=== PATIENT | male | born 1995 | race Caucasian/White ===

== ENCOUNTER 2020-07-28 20:02 | Emergency (ER) | payer BC, SELFPAY ==
[2020-07-28] VITALS (12 sets, daily range): BP systolic 112–157; BP diastolic 77–110; PULSE 90–140; RESP 14–23; TEMP 37.1; O2SAT 94–99
--- NOTE | 2020-07-28 20:00 | RT.EKG_ITS ---
APPROVED REPORT Exam: Resting ECG Patient Location: E HR:128 bpm ECG Measurements Heart Rate 128 AXIS DE 151 P 76 QRSd 96 QRS 86 QT 299 T -34 QTc 435 Conclusion Sinus tachycardia...rate> 99
--- NOTE | 2020-07-28 20:15 | DI.CT_ITS ---
EXAM: CT THORAX CTA CLINICAL HISTORY: chest pain. TECHNIQUE: Imaging Protocol: Axial CT angiography was performed with multi-slice acquisition and mu lti-planar and/or 3D reconstructions. CONTRAST MATERIAL: Intravenous: Omnipaque 350 Contrast volume:64 mL COMPARISON: No exams were available for comparison FINDINGS: Pulmonary Arteries: No evidence of filling defect to suggest pulmonary emboli. Tracheobronchial tree: Patent where visualized. Mediastinum and Natalya: No dominant adenopathy or fluid collection. Pulmonary parenchyma: No consolidation or dominant measurable mass. No architectural distortion. Pleura: No effusion or pneumothorax. Heart: The heart is not dilated. No coronary artery calcifications are seen. No pericardial effusion. Aorta: Thoracic aorta non-dilated. No dissection. Upper abdomen: Unremarkable. Bones: Normal. Soft tissues: Unremarkable IMPRESSION: No evidence of pulmonary embolism, thoracic aortic dissection or aneurysm. RADIATION DOSE DELIVERED: 391.12mGy.cm Total DLP DATA REPOSITORY: All CT scans at this facility are submitted to the National Radiology Data Registry (NRDR) Dose Index Registry (DIR) with the [employer] (ACR). RADIATION OPTIMIZATION: All CT scans at this facility use at least one of these dose optimization te chniques: automated exposure control; mA and/or kV adjustment per patient size (includes targeted exa ms where dose is matched to clinical indication); or iterative reconstruction.
--- NOTE | 2020-07-28 20:17 | ED.GENADUL_ITS ---
Discharge Plan Disposition Patient Disposition: HOME Condition: Stable Discharge Details Clinical Impression: Chest pain, Hypokalemia ED Provider: Rolando Hawk Home Meds and New Rx's Prescriptions: Continued calcium carbonate 500 mg calcium (1,250 mg) Tablet,Chewable 1 mg PO PRN PRNRF: 0 albuterol 90 mcg/actuation Aerosol INHALATION PRN PRNRF: 0 Discharge Instructions Instructions: Chest Pain (ED), Hypokalemia (ED) Additional Instructions: follow up with your primary care provider within 1 week and also have your potassium level rechecked if you feel more ill, have worsening pain or difficulty breathing return to the emergency department Medical Decision Making 24 yo male with no chronic medical problems who denies smoking or drug use and drinks occassionally comes in after he was eating then started to have chest pressure with radiation to the back. No diaphoresis, vomit dyspnea, fevers cough and felt well all day. Denies prior cardiac history. He arrives tachycardic and does appear mildly anxious. No leg swelling or calf tenderness or pleuritic chest pain. Suspect this could be anxiety vs esophageal spasm but given his heart rate and radiation to the back concern for possible dissection will obtain CT. Heart score is 1, will obtain troponin. No evidence of dvt and no pleuritic pain or hypoxia so doubt PE Labs show hypokalemia otherwise unremarkable, and ct imaging shows no acute findings. On reassessment his HR is in the 90's sinus on the monitor and he feels improved. Will monitor and obtain delta troponin and ecg pt remains asymptomatic , hd stable with hr's in the 90's, repeat ecg and troponin reassuring. Will d/c and advised to f/u with pcp within 1 week and return precautions given Differential Diagnosis Differential Diagnosis: dissection, acs, anxiety Lab Data Lab results reviewed: Yes I reviewed the patient's lab results. ECG Data Attestation: I personally reviewed and interpreted this ECG (s) as follows: Prior ECG tracings: not available for review Interpretation: sinus tachycardia, rate of 128, pr 151 2nd ekg shows sinus rhythm rate of [address] t wave ischemic findings HPI General Mode of arrival: ambulatory . Date/Time Provider Initiated Documentation: 07/28/20 20:04 . Limitations to Documentation: no limitations . Information obtained by: patient . History of Present Illness 24 year old M presents to the emergency department with the chief complaint of chest pain, described as moderate, Patient started experiencing this hour(s) (1) and it has been constant. No relieving factors improve symptom(s), No exacerbating factors reported . Patient did receive the following treatments prior to arrival, none Related Data Home Medications Medication Instructions Recorded Confirmed albuterol mcg INHALATION PRN PRN 07/28/20 calcium carbonate 1 mg PO PRN PRN 07/28/20 07/28/20 Allergies Allergy/AdvReac Type Severity Reaction Status Date / Time No Known Allergies Allergy Unverified 07/28/20 20:10 General Stated Complaint: Chest Pain MASON: 2 Review of Systems All systems reviewed & are unremarkable except as noted in HPI and below Constitutional Constitutional: Denies chills, Denies fever(s) and Denies weakness Cardiovascular Cardiovascular: Denies dyspnea Respiratory Respiratory: Denies cough and Denies dyspnea Gastrointestinal Gastrointestinal: Denies abdominal pain, Denies nausea and Denies vomiting Musculoskeletal Musculoskeletal: Denies joint swelling Neurologic Neurologic: Denies weakness Psychiatric Psychiatric: Denies depression PFSH Social History Smoking/Tobacco Use Status: Never Smoking risk assessment performed?: Yes Alcohol Intake: current Alcohol Intake frequency: 0-2 drinks per day Drug use: Never Substance use type: does not use Do you feel safe at home: Yes Do you feel safe in your relationship?: Yes Exam Const General: no acute distress Orientation: alert HENCO Head: normal to inspection Ears: external ears normal General nose exam: external nose normal Mouth: moist mucous membranes Eyes General: appearance normal, both eyes and all related structures Neck Neck: normal visual inspection Resp Effort & Inspection: normal respiratory effort and able to speak in complete sentences Cardio Rate: tachycardic Skin General skin exam: no rashes or lesions noted Neuro General: patient alert and patient oriented x3 Extrem General: normal to inspection Psych Mental Status: mental status grossly normal Course Vital Signs Vital signs: Vital Signs Temperature 37.1 C 07/28/20 20:03 Pulse 140 H 07/28/20 20:03 Respiratory Rate 14 07/28/20 20:03 Blood Pressure 157/108 H 07/28/20 20:03 Pulse Oximetry 94 07/28/20 20:03 Temperature 37.1 C 07/28/20 20:03 Temperature Source Temporal Artery Scan 07/28/20 20:03 Pulse 140 H 07/28/20 20:03 Respiratory Rate 14 07/28/20 20:03 Respiratory Effort 07/28/20 20:08 Blood Pressure 157/108 H 07/28/20 20:03 Blood Pressure Position Sitting 07/28/20 20:03 Pulse Oximetry 94 07/28/20 20:03 Oxygen Delivery Method Room Air 07/28/20 20:03 Oxygen Flow Rate 0 07/28/20 20:03 Pain Level 7 07/28/20 20:12
[2020-07-28] MEDS: Aspirin 81 MG CHEW 324 MG CH (20:24)
[2020-07-28] MEDS: LORazepam 2 MG/ML VIAL 1 MG IVP (20:24)
[2020-07-28 20:26] LABS: Abs Immature Grans 0.01 10^3/uL (0.0-0.06); Absolute Basophil Count 0.06 10^3/uL (0.0-0.2); Absolute Eosinophil Count 0.04 10^3/uL (0.0-0.7); Absolute Lymphocyte Count 2.78 10^3/uL (1.2-3.4); Absolute Monocyte Count 0.79 10^3/uL (0.1-0.8); Absolute Neutrophil Count 5.89 10^3/uL (1.2-6.7); Basophils % 0.6; Eosinophils % 0.4; HCT 43.8 % (40.0-50.0); HGB 15.1 g/dL (13.5-17.5); Immature Grans % 0.1; MCH 30.6 pg (27.0-33.0); MCHC 34.5 % (32.0-36.0); MCV 88.8 fL (80-95); MPV 10.2 fL (8.0-11.0); Monocytes % 8.3; Neutrophils % 61.6; Nucleated RBC 0 %; Platelet Count 372 10^3/uL (130-400); RBC 4.93 10^6/uL (4.36-5.78); RDW 12.2 % (11.8-14.1); RDW-SD 39.8 fL; WBC 9.57 10^3/uL (4.4-10.8)
[2020-07-28] MEDS: Omnipaque 350 MG/ML 100 ML BTL IJ (20:27)
[2020-07-28 20:40] LABS: INR 1.1 (0.9-1.1); PTT Activated 24.2 sec (21.0-27.5); Prothrombin Time 11.2 sec (9.3-11.0)
[2020-07-28 20:42] LABS: ALT 24 U/L (16-63); AST 18 U/L (15-37); Alkaline Phosphatase 84 U/L (46-116); Anion Gap 13.5 mmol/L (3-11); BUN 11 mg/dL (7-18); Bilirubin, Total 1.8 mg/dL (0.2-1.0); CO2 24.5 mmol/L (21.0-32.0); CREATININE 1.13 mg/dL (0.70-1.30); Calcium 9.1 mg/dL (8.5-10.1); Chloride 101 mmol/L (98-107); Glucose 108 mg/dL (74-106); Lipase 90 U/L (73-393); Magnesium 2.1 mg/dL (1.8-2.4); Sodium 139 mmol/L (136-145); Total Protein 8.5 g/dL (6.4-8.2)
[2020-07-28 20:43] LABS: Troponin I < 0.05 ng/mL (<0.06)
[2020-07-28 20:44] LABS: Potassium 2.8 mmol/L (3.5-5.1)
[2020-07-28 20:53] LABS: ETHANOL BLOOD < 3.0 mg/dL (<3)
[2020-07-28] MEDS: Potassium Chloride 20 MEQ TABCR 40 MEQ PO (21:01)
[2020-07-28] MEDS: Normal Saline Flush 10 ML SYR IVP (21:01)
[2020-07-28] MEDS: Normal Saline - Diluent 50 ML VIAL IV (21:01)
--- NOTE | 2020-07-28 21:02 | DI.VRAD_ITS ---
PROCEDURE INFORMATION: Exam: CT Angiography Chest With Contrast Exam date and time: 07/28/2020 8:43 PM Age: 24 years old Clinical indication: Chest pain and chest pressure; Patient HX: Chest pain and pressure radiating into arm TECHNIQUE: Imaging protocol: Computed tomographic angiography of the chest with intravenous contrast. 3D rendering (Not supervised by radiologist): MIP and/or 3D reconstructed images were created by the technologist. Radiation optimization: All CT scans at this facility use at least one of these dose optimization techniques: automated exposure control; mA and/or kV adjustment per patient size (includes targeted exams where dose is matched to clinical indication); or iterative reconstruction. Contrast material: OMNIPAQUE 350; Contrast volume: 64 ml; Contrast route: INTRAVENOUS (IV); COMPARISON: No relevant prior studies available. FINDINGS: Pulmonary arteries: Normal. No pulmonary emboli. Aorta: Unremarkable. No aortic aneurysm. No aortic dissection. Lungs: Unremarkable. No consolidation. No masses. Pleural space: Unremarkable. No pneumothorax. No pleural effusion. Heart: Unremarkable. No cardiomegaly. No pericardial effusion. Lymph nodes: Unremarkable. No enlarged lymph nodes. Bones/joints: Unremarkable. No acute fracture. Soft tissues: Unremarkable. Other findings: The visualized intra-abdominal structures demonstrate no acute findings. IMPRESSION: Negative for acute thoracic pathology. Dictated and Authenticated by: Georges Quinonez MD. Ordering:DAVID Marshall MD
[2020-07-28] MEDS: Normal Saline 1,000 ML 1000 ML IV (22:01)
--- NOTE | 2020-07-28 22:23 | NUR.NOTE ---
pt states that he feels better Nursing Note:
--- NOTE | 2020-07-28 23:00 | RT.EKG_ITS ---
APPROVED REPORT Exam: Resting ECG Patient Location: E HR:91 bpm ECG Measurements Heart Rate 91 AXIS MT 134 P 69 QRSd 96 QRS 77 QT 344 T 47 QTc 423 Conclusion Sinus rhythm...normal P axis, V-rate 60- 99
[2020-07-28 23:48] LABS: Troponin I < 0.05 ng/mL (<0.06)
== END 2020-07-29 00:15 | disposition home or self-care (01) ==
LOC: ER 07-29 00:12
PROVIDERS: Emergency Provider Emergency Medicine; PCP Physician Assistant
DX: E87.6 Hypokalemia (principal); R07.9 Chest pain, unspecified
CPT/HCPCS: 36415; 71275; 80053; 83690; 93005; 96374; 99285; 80320; 83735; 84484; 85025; 85610; 85730; 93010; J2060; J3490

== ENCOUNTER 2020-08-09 21:06 | Outpatient (REF) | payer BC, SELFPAY ==
[2020-08-09 18:39] LABS: Anion Gap 8.4 mmol/L (3-11); BUN 9 mg/dL (7-18); CO2 27.6 mmol/L (21.0-32.0); CREATININE 0.99 mg/dL (0.70-1.30); Calcium 9.3 mg/dL (8.5-10.1); Chloride 104 mmol/L (98-107); Glucose 89 mg/dL (74-106); Sodium 140 mmol/L (136-145)
== END 2020-08-09 21:26 ==
LOC: NCHCN 21:06
PROVIDERS: PCP Physician Assistant; Visit Provider Physician Assistant
DX: E87.6 Hypokalemia (principal)
CPT/HCPCS: 80048

== ENCOUNTER 2021-02-07 02:35 | Outpatient (CLI) | payer BC, SELFPAY ==
[2021-02-07 16:44] LABS: Albumin 4.5 g/dL (3.4-5.0); Anion Gap 10.6 mmol/L (3-11); BUN 11 mg/dL (7-18); CO2 25.4 mmol/L (21.0-32.0); Chloride 105 mmol/L (98-107); Glucose 91 mg/dL (74-106); Sodium 141 mmol/L (136-145); TSH (W/Ref FT4) 1.02 uIU/mL (0.36-3.74); Vitamin B12 301 pg/mL (193-986)
[2021-02-07 16:54] LABS: C-Reactive Protein 0.09 mg/dL (0.0-0.3); PHOSPHORUS 3.9 mg/dL (2.6-4.7)
[2021-02-07 17:00] LABS: Lithium 0.5 mmol/l (0.6-1.2)
== END 2021-02-07 02:36 | disposition home or self-care (01) ==
LOC: LBO 02:35
PROVIDERS: PCP Physician Assistant; Visit Provider Nurse Practitioner Family
DX: F31.62 Bipolar disorder, current episode mixed, moderate (principal); Z79.899 Other long term (current) drug therapy; Z51.81 Encounter for therapeutic drug level monitoring
CPT/HCPCS: 36415; 80069; 80076; 80178; 82607; 84443; 86140

== ENCOUNTER 2021-04-15 16:36 | Outpatient (REF) | payer BC, SELFPAY ==
[2021-04-15 19:37] LABS: Lithium 0.6 mmol/l (0.6-1.2)
[2021-04-15 19:53] LABS: Albumin 4.6 g/dL (3.4-5.0); Anion Gap 10.3 mmol/L (3-11); BUN 19 mg/dL (7-18); CO2 23.7 mmol/L (21.0-32.0); Calcium 9.5 mg/dL (8.5-10.1); Chloride 105 mmol/L (98-107); Glucose 88 mg/dL (74-106); PHOSPHORUS 4.4 mg/dL (2.6-4.7); Potassium 3.6 mmol/L (3.5-5.1); Sodium 139 mmol/L (136-145); TSH (W/Ref FT4) 1.13 uIU/mL (0.36-3.74)
== END 2021-04-15 16:37 | disposition home or self-care (01) ==
LOC: LBN 16:36
PROVIDERS: PCP Physician Assistant; Visit Provider Nurse Practitioner Family
DX: F31.61 Bipolar disorder, current episode mixed, mild (principal); F51.05 Insomnia due to other mental disorder; R45.4 Irritability and anger; Z51.81 Encounter for therapeutic drug level monitoring
CPT/HCPCS: 80069; 80178; 84443

== ENCOUNTER 2021-07-02 16:14 | Outpatient (REF) | payer BC, SELFPAY ==
[2021-07-02 19:11] LABS: Lithium 0.7 mmol/l (0.6-1.2)
[2021-07-02 19:39] LABS: Albumin 4.4 g/dL (3.4-5.0); BUN 12 mg/dL (7-18); Chloride 105 mmol/L (98-107); Glucose 83 mg/dL (74-106); PHOSPHORUS 4.6 mg/dL (2.6-4.7); Sodium 140 mmol/L (136-145); TSH (W/Ref FT4) 1.08 uIU/mL (0.36-3.74)
== END 2021-07-02 16:15 | disposition home or self-care (01) ==
LOC: LBN 16:14
PROVIDERS: PCP Physician Assistant; Visit Provider Nurse Practitioner Family
DX: F31.75 Bipolar disorder, in partial remission, most recent episode depressed (principal); R45.851 Suicidal ideations; Z51.81 Encounter for therapeutic drug level monitoring; Z79.899 Other long term (current) drug therapy
CPT/HCPCS: 80069; 80178; 84443

== ENCOUNTER 2023-02-03 16:43 | Outpatient (REF) | payer BC, SELFPAY | END 2023-02-03 16:44 | disposition home or self-care (01) | LOC: LBN 16:43 | PROVIDERS: PCP Physician Assistant; Visit Provider Physician Assistant Medical | DX: J02.9 Acute pharyngitis, unspecified (principal) | CPT/HCPCS: 87077; 87070 ==

== ENCOUNTER 2023-02-25 16:07 | Outpatient (CLI) | payer BC, SELFPAY ==
--- NOTE | 2023-02-25 | DI.RAD_ITS ---
Exam(s) XR WRIST RT COMPLETE EXAM: XR WRIST RT COMPLETE CLINICAL HISTORY: PAIN RT WRIST M25.531 FOOSH INJURY 4 DAYS AGO. TECHNIQUE: 2D digital imaging was performed. COMPARISON: No exams were available for comparison FINDINGS: 3 views No evidence of acute fracture or dislocation. No significant ulnar variance. Scaphoid and scapholun ate distance are normal. No radiopaque foreign body. IMPRESSION: No fracture evident. DATA REPOSITORY: RADIATION DOSE DELIVERED:
== END 2023-02-25 16:27 ==
PROVIDERS: PCP Physician Assistant; Visit Provider Physician Assistant Medical
DX: M25.531 Pain in right wrist (principal); W18.30XA Fall on same level, unspecified, initial encounter
CPT/HCPCS: 73110

== ENCOUNTER 2025-05-28 20:37 | Emergency (ER) | payer BC, SELFPAY ==
--- NOTE | 2025-05-28 20:30 | RT.EKG_ITS ---
APPROVED REPORT Exam: Resting ECG Reason for Exam: chest pain Patient Location: E HR:94 bpm ECG Measurements Heart Rate 94 AXIS SD 135 P 48 QRSd 98 QRS 60 QT 359 T 33 QTc 450 Conclusion Sinus rhythm...normal P axis, V-rate 60- 99 No STEMI
[2025-05-28 20:39] VITALS: BP 134/85; PULSE 101; RESP 18; TEMP 36.8; O2SAT 98
[2025-05-28 21:01] VITALS: RESP 16
--- NOTE | 2025-05-28 21:15 | ED.GENADUL_ITS ---
Discharge Plan Disposition Patient Disposition: Home Condition: Stable Discharge Details Clinical Impression: Abdominal pain, Constipation, Gas bloat syndrome Primary Care Provider: Paul Bautista ED Provider: Amarilys Wong Discharge Instructions Instructions: Gas and bloating, Constipation, Adult ED Additional Instructions: CT shows increased gas and possible constipation. No obstruction or evidence of appendicitis. Please increase oral fluids, you can try exercise, you may try [id number] gentle laxative such as MiraLAX and Gas-X. You may also get a fleets enema [id number] if no improvement with these measures. Please return to the ER for any vomiting, worsening pain, fever or chills or concerns. Follow up with primary care provider in 3-5 days. Return to ED sooner if any worsening or concerns. Please take Tylenol or Ibuprofen with food every 4-6 hours as needed for pain and swelling. Referrals: Paul Bautista [Primary Care Provider, Medicine] - 1 week Referral Note: ER follow-up, appointment if needed Clinical Impression: Abdominal pain; Constipation HPI General Mode of arrival: ambulatory . Date/Time Provider Initiated Documentation: 05/28/25 20:47 . Limitations to Documentation: no limitations . Information obtained by: patient, RN notes reviewed and old records reviewed . HPI Narrative: 39-year-old male presents to the ER with a chief complaint of generalized abd ominal pain and midepigastric pain which began approximately an hour ago. He describes it as intermittent and sharp. 8 out of 10 and worse. Reports some nausea, no vomiting he reports normal bowel movements denies any blood or dark stools. Denies any shortness of breath or cough denies any recent abdominal trauma or injuries. Reports that he is belching and passing gas however has not helped the pain. Related Data Allergies Allergy/AdvReac Type Severity Reaction Status Date / Time No Known Allergies Allergy Unverified 05/28/25 20:42 General Stated Complaint: Chest Pain MASON: 3 Review of Systems All systems reviewed & are unremarkable except as noted in HPI and below Constitutional Constitutional: Denies body ache(s), Denies chills and Denies fever(s) Cardiovascular Cardiovascular: Denies diaphoresis, Denies leg edema and Denies lightheadedness Gastrointestinal Gastrointestinal: Reports as per HPI, Reports abdominal pain, Denies melena, Reports bloating, Denies hematochezia, Reports change in bowel habits, Reports cramping, Reports heartburn and Reports nausea Exam Narrative Exam Narrative: Constitutional: Alert and oriented x3. Appears stated age. Normal body habitus. Head: Normocephalic, no trauma. Eyes: Pupils PERRL, Red reflex noted, EOM's intact. Eyelids symmetrical without lesions, discharge, or swelling. ENT: Bilateral TM's WNL, External ear normal to inspection, no mastoid TTP, swelling, or erythema, Nasal turbinates WNL, no nasal discharge. Normal dentition, Posterior pharynx WNL, no exudate. Chest: RRR, Normal S1, S2, distal pulses intact. Resp: Lungs clear to auscultation bilaterally, no wheezes, rales, or rhonchi. Abdomen: Soft, non-distended, Normoactive bowel sounds all 4 quads. Musculoskeletal: Normal gait, Moves all 4 extremities without difficulty. Skin: No suspicious rashes or lesions. Capillary refill less than 2 sec. Neurologic: Cranial nerves II-XII intact. Alert and oriented x 3. Motor: No deficits noted. Sensory: Intact bilaterally all 4 extremities. Hematologic/Lymphatic: No ecchymosis, no lymphadenopathy. Course Vital Signs Vital signs: Vital Signs Temperature 36.8 C 05/28/25 20:39 Pulse 101 H 05/28/25 20:39 Respiratory Rate 18 05/28/25 20:39 Blood Pressure 134/85 05/28/25 20:39 Pulse Oximetry 98 05/28/25 20:39 Temperature 36.8 C 05/28/25 20:39 Pulse 101 H 05/28/25 20:39 Respiratory Rate 16 05/28/25 21:01 Respiratory Effort Normal, Non-Labored 05/28/25 21:01 Respiratory Depth Normal 05/28/25 21:01 Respiratory Pattern Normal 05/28/25 21:01 Blood Pressure 134/85 05/28/25 20:39 Pulse Oximetry 98 05/28/25 20:39 Oxygen Delivery Method Room Air 05/28/25 20:39 Oxygen Flow Rate 0 05/28/25 20:39 Pain Level 8 05/28/25 21:01 Medical Decision Making 39-year-old male presents to the ER with a chief complaint of generalized abdominal pain and midepigastric pain which began approximately an hour ago. He describes it as intermittent and sharp. 8 out of 10 and worse. Reports some nausea, no vomiting he reports normal bowel movements denies any blood or dark stools. Denies any shortness of breath or cough denies any recent abdominal trauma or injuries. Reports that he is belching and passing gas however has not helped the pain. EKG was reviewed by Bree and myself ER attending, the EKG is normal currently. No ischemic changes, no ectopy no LA. Please see official report. CBC CMP and lipase ordered GI cocktail. Will consider CT imaging if no improvement after GI cocktail and labs. No leukocytosis, CMP largely within normal limits, bilirubin slightly elevated lipase within normal limits. 2210: Patient reevaluation he reports mild improvement however still complaining of bloating and belching. CT abdomen pelvis with contrast ordered. Carafate [address] shows moderate colonic gas and constipation which is consistent with patient's clinical presentation. Imaging Data Radiologic Study: Imaging: CT Scan Radiologist's impression: FINDINGS: Lungs: Visualized lung bases are clear. Heart: Heart size normal. Esophagus: The visualized distal esophagus is largely contracted without gross abnormality. Liver: Normal contour. 3 mm probable cyst in the anterior liver does not require further evaluation. No intrahepatic biliary ductal dilatation. Gallbladder and biliary ducts: Normal. No calcified stones. No ductal dilation. Pancreas: Normal. No inflammatory changes or ductal dilation. Spleen: Normal. No splenomegaly. Adrenal glands: Normal. No adrenal mass. Kidneys and ureters: No acute abnormalities. No hydronephrosis or hydroureter. No urinary tract stones are identified. Stomach and bowel: The stomach is unremarkable. The small bowel is nondilated with no gross abnormality. Moderate colonic gas and stool, possible constipation. Appendix: The appendix is normal in caliber and demonstrates no evidence of appendicitis. Intraperitoneal space: No peritoneal free fluid or air. Vasculature: No acute vascular abnormalities. Lymph nodes: No adenopathy. Urinary bladder: Unremarkable as visualized. Reproductive: Unremarkable as visualized. Bones/joints: No acute osseous abnormalities. Soft tissues: No acute soft tissue abnormalities. IMPRESSION: 1. No definite acute process. 2. Moderate colonic gas and stool, possible constipation. Thank you for allowing us to participate in the care of your patient. Dictated and Authenticated by: Samm Florian MD Lab Data Lab results reviewed: Yes I reviewed the patient's lab results. Labs: Laboratory Tests Range/Units 05/28/25 21:32 WBC (4.4-10.8) 10^3/uL 5.59 RBC (4.36-5.78) 10^6/uL 4.66 Hgb (13.5-17.5) g/dL 14.2 Hct (40.0-50.0) % 41.2 MCV (80-95) fL 88 MCH (27.0-33.0) pg 30.5 MCHC (32.0-36.0) % 34.5 RDW (11.8-14.1) % 12.1 Plt Count (130-400) 10^3/uL 301 MPV (8.0-11.0) fL 9.9 Immature Gran % % 0.2 Neutrophils % % 52.5 Lymphocytes % % 35.8 Monocytes % % 7.9 Eosinophils % % 2.5 Basophils % % 1.1 Nucleated RBC % (0.0-0.3) % 0.0 Absolute Neutrophils (1.2-6.7) 10^3/uL 2.94 Absolute Lymphocytes (1.2-3.4) 10^3/uL 2.00 Absolute Monocytes (0.1-0.8) 10^3/uL 0.44 Absolute Eosinophils (0.0-0.7) 10^3/uL 0.14 Absolute Basophils (0.0-0.2) 10^3/uL 0.06 Sodium (136-145) mmol/L 141 Potassium (3.5-5.1) mmol/L 3.9 Chloride (98-107) mmol/L 105 Carbon Dioxide (21.0-32.0) mmol/L 26.6 Anion Gap (3-11) mmol/L 9.4 BUN (7-18) mg/dL 9 Creatinine (0.70-1.30) mg/dL 0.9 Est GFR (CKD-EPI 2020) (mL/min/1.73m2) 119.31 Glucose (74-106) mg/dL 93 Calcium (8.5-10.1) mg/dL 9.5 Total Bilirubin (0.2-1.0) mg/dL 1.3 H AST (15-37) U/L 32 ALT (16-63) U/L 60 Alkaline Phosphatase (46-116) U/L 82 Total Protein (6.4-8.2) g/dL 8.1 Albumin (3.4-5.0) g/dL 4.7 Lipase (<78) U/L 30 PFSH All Active Problems (Updated 05/28/25 @ 23:39 by Amarilys Wong NP) Gas bloat syndrome (Acute) Constipation (Acute) Abdominal pain (Acute) Social History Smoking/Tobacco Use Status: Never Smoking risk assessment performed?: Yes Alcohol Intake: current Alcohol Intake frequency: 0-2 drinks per day Drug use: Never Substance use type: does not use Do you feel safe at home: Yes Do you feel safe in your relationship?: Yes
[2025-05-28] MEDS: MYLANTA 30 ML, LIDOCAINE 2% VISCOUS UD 15 ML PO (21:26)
[2025-05-28 21:41] LABS: Abs Immature Grans 0.01 10^3/uL (0.0-0.06); HCT 41.2 % (40.0-50.0); HGB 14.2 g/dL (13.5-17.5); Immature Grans % 0.2 %; MCH 30.5 pg (27.0-33.0); MCHC 34.5 % (32.0-36.0); MCV 88 fL (80-95); MPV 9.9 fL (8.0-11.0); Platelet Count 301 10^3/uL (130-400); RBC 4.66 10^6/uL (4.36-5.78); RDW 12.1 % (11.8-14.1); RDW-SD 39.4 fL; WBC 5.59 10^3/uL (4.4-10.8)
[2025-05-28 21:47] VITALS: BP 117/94; PULSE 82; RESP 16; O2SAT 98
[2025-05-28 21:59] LABS: ALT 60 U/L (16-63); AST 32 U/L (15-37); Albumin 4.7 g/dL (3.4-5.0); Alkaline Phosphatase 82 U/L (46-116); Anion Gap 9.4 mmol/L (3-11); BUN 9 mg/dL (7-18); Bilirubin, Total 1.3 mg/dL (0.2-1.0); CO2 26.6 mmol/L (21.0-32.0); Calcium 9.5 mg/dL (8.5-10.1); Chloride 105 mmol/L (98-107); Estimated GFR 119.31 (mL/min/1.73m2); Glucose 93 mg/dL (74-106); Lipase 30 U/L (<78); Potassium 3.9 mmol/L (3.5-5.1); Sodium 141 mmol/L (136-145); Total Protein 8.1 g/dL (6.4-8.2)
[2025-05-28] MEDS: Omnipaque 350 MG/ML 100 ML BTL IJ (22:18)
[2025-05-28] MEDS: Normal Saline - Diluent 50 ML VIAL IJ (22:18)
[2025-05-28] MEDS: Normal Saline Flush 10 ML SYR IVP (22:19)
[2025-05-28 22:30] VITALS: BP 123/88; PULSE 84; RESP 16; O2SAT 98
--- NOTE | 2025-05-28 22:30 | DI.CT_ITS ---
Exam(s) CT ABDOMEN PELVIS W EXAM: CT ABDOMEN PELVIS W CLINICAL HISTORY: Abdominal pain TECHNIQUE: Imaging Protocol: Axial computed tomography images with coronal and sagittal reformatted images were created and reviewed. CONTRAST MATERIAL: Intravenous: Omnipaque 350 Contrast volume:75 mL Oral: No COMPARISON: CT CT THORAX CTA from 07/28/2020 FINDINGS: ABDOMEN: Lung Bases: No acute abnormality. Liver: Normal density. No suspicious masses are present. Portal, Superior Mesenteric, and Splenic Veins: Unremarkable. Gallbladder and Biliary Tract: No radiodense calculus or dilation. Pancreas: Normal density, no abnormal calcifications or inflammatory process. Spleen: Normal. Adrenals: No masses seen. Kidneys: Normal size, contour and axis. No radiodense stones or obstructive uropathy. No masses seen. Abdominal Aorta: Abdominal portion non-dilated. Bowel: No obstruction or bowel wall thickening. Appendix is unremarkable. Peritoneal Cavity: No ascites, collection or mesenteric inflammatory response. No free air. Lymph Nodes: Within normal limits. Bones: Within normal limits for the patient's age. Soft Tissues: Unremarkable. PELVIS: Bladder: Symmetric distention, no gross wall thickening. Reproductive Organs: Unremarkable as visualized. Lymph Nodes: Within normal limits. Bones: Within normal limits for the patient's age. IMPRESSION: 1. No acute abdominal or pelvic process. 2. The preliminary [facility] report was reviewed. RADIATION DOSE DELIVERED: 349.93mGy.cm Total DLP DATA REPOSITORY: All CT scans at this facility are submitted to the National Radiology Data Registry (NRDR) Dose Index Registry (DIR) with the [employer] (ACR). RADIATION OPTIMIZATION: All CT scans at this facility use at least one of these dose optimization techniques: automated exposure control; mA and/or kV adjustment per patient size (includes targeted exams where dose is matched to clinical indication); or iterative reconstruction.
[2025-05-28] MEDS: Sucralfate 1 GM TAB PO (22:44)
[2025-05-28 23:29] VITALS: BP 127/84; PULSE 76; RESP 16; O2SAT 98
--- NOTE | 2025-05-28 23:29 | DI.VRAD_ITS ---
PROCEDURE INFORMATION: Exam: CT Abdomen And Pelvis With Contrast Exam date and time: 05/28/2025 10:18 PM Age: 29 years old Clinical indication: Abdominal pain TECHNIQUE: Imaging protocol: Computed tomography of the abdomen and pelvis with contrast. Contrast material: OMNIPAQUE 350; Contrast volume: 75 ml; Contrast route: INTRAVENOUS (IV); COMPARISON: CT THORAX CTA 07/28/2020 8:30 PM FINDINGS: Lungs: Visualized lung bases are clear. Heart: Heart size normal. Esophagus: The visualized distal esophagus is largely contracted without gross abnormality. Liver: Normal contour. 3 mm probable cyst in the anterior liver does not require further evaluation. No intrahepatic biliary ductal dilatation. Gallbladder and biliary ducts: Normal. No calcified stones. No ductal dilation. Pancreas: Normal. No inflammatory changes or ductal dilation. Spleen: Normal. No splenomegaly. Adrenal glands: Normal. No adrenal mass. Kidneys and ureters: No acute abnormalities. No hydronephrosis or hydroureter. No urinary tract stones are identified. Stomach and bowel: The stomach is unremarkable. The small bowel is nondilated with no gross abnormality. Moderate colonic gas and stool, possible constipation. Appendix: The appendix is normal in caliber and demonstrates no evidence of appendicitis. Intraperitoneal space: No peritoneal free fluid or air. Vasculature: No acute vascular abnormalities. Lymph nodes: No adenopathy. Urinary bladder: Unremarkable as visualized. Reproductive: Unremarkable as visualized. Bones/joints: No acute osseous abnormalities. Soft tissues: No acute soft tissue abnormalities. IMPRESSION: 1. No definite acute process. 2. Moderate colonic gas and stool, possible constipation. Dictated and Authenticated by: Samm Florian MD. Orderin Judith Panda MD
== END 2025-05-28 23:59 | disposition home or self-care (01) ==
PROVIDERS: Emergency Provider Registered Nurse Emergency; PCP Physician Assistant
DX: R10.13 Epigastric pain (principal); R14.1 Gas pain; K59.00 Constipation, unspecified
CPT/HCPCS: 36415; 80053; 83690; 93005; 99285; 74177; 85025; 93010; 99284; J3490